=== PATIENT | female | born 1995 | race Caucasian/White ===

== ENCOUNTER → 2020-09-28 | Emergency (ER) | payer BC ==
[~2020-09-28] VITALS: Ht 157.5 cm; Wt 62.1 kg
[~2020-09-28] MED LIST: APIXABAN 5 MG TABLET PO SCH
--- NOTE | 2020-09-28 17:55 | NUR ---
pt came to ER with RLE swelling for 1 week. PT was confirmed with DVT via US today. pt able to ambulate with steady gait. no pain at this time. awaiting for MD syed
[2020-09-28 18:53] VITALS: BP 117/78
== END | disposition home or self-care (01) ==
LOC: ER 17:41
DX: I82.491 Acute embolism and thrombosis of other specified deep vein of right lower extremity (principal); E10.9 Type 1 diabetes mellitus without complications